=== PATIENT | male | born 1980 | race Two or more races ===

== ENCOUNTER 2021-09-11 13:05 | Emergency (ER) | payer OTHER ==
[~2021-09-11] VITALS: Ht 182.9 cm; Wt 102.1 kg
--- NOTE | 2021-09-11 13:45 | NUR ---
41 years male came from home c/o pain on lt knee and swallen resprition spont and easy
[2021-09-11] MEDS ORDERED: IBUPROFEN 400 MG TABLET PO ONE (15:00)
[2021-09-11] MEDS ORDERED: IBUPROFEN 400 MG TABLET ONE ×2 (15:00→15:21)
--- NOTE | 2021-09-11 15:00 | NUR ---
c/o pain on lt knee ice bag appled
[2021-09-11] MEDS ORDERED: IBUP-1957 PO (15:55)
--- NOTE | 2021-09-11 16:22 | NUR ---
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
--- NOTE | 2021-09-11 16:23 | NUR ---
Patient discharged to home in stable condition. Written and verbal after care instructions given. Patient verbalizes understanding of instruction.
[2021-09-11 16:24] VITALS: BP 132/82
== END 2021-09-11 16:25 | disposition home or self-care (01) ==
LOC: ER 13:23
DX: M25.462 Effusion, left knee (principal); Z79.1 Long term (current) use of non-steroidal anti-inflammatories (NSAID); Y93.39 Activity, other involving climbing, rappelling and jumping off; Y93.67 Activity, basketball; Y92.89 Other specified places as the place of occurrence of the external cause; Y99.8 Other external cause status
CPT/HCPCS: 73564-TC